=== PATIENT | female | born 1960 | race Caucasian/White ===

== ENCOUNTER 2019-06-11 17:38 | Inpatient (IN) ==
[2019-06-11] MEDS ORDERED: ZOSYN 3.375 GM in NS 50 ML IV ONE (18:06)
[2019-06-11] MEDS ORDERED: ZOFRAN IV ONE (18:11)
[2019-06-11] MEDS ORDERED: DILAUDID IV ONE (18:11)
--- NOTE | 2019-06-11 18:17 | PROVIDER DOCUMENTATION ---
This chart was entered by Nito Grider Scribe, acting as scribe for Oleg Neal MD. HPI-Abdominal Pain/GI Problem - General Chief Complaint: Abdominal Pain Stated Complaint: DR INMAN REF---APPENDIX? Time Seen by Provider: 06/11/19 17:43 Source: patient Allergies/Adverse Reactions: Patient Allergies Allergy/AdvReac Type Severity Reaction Status Date / Time No Known Allergies Allergy Verified 12/05/16 23:25 Home Medications: Home Medication List Medication Instructions Recorded Confirmed Last Taken Type Lisinopril 10 mg PO QHS 06/11/19 06/11/19 Unknown History Sertraline HCl 100 mg PO QHS 06/11/19 06/11/19 Unknown History - History of Present Illness-ABD Nature of Presenting Problems: Pt is a 58 yof who presents to the ED with a CC of abdominal pain. Pt reports her pain started two days ago. Pt reports her pain to the RLQ and to her generalized abdomen. Pt states she saw her PCP this morning and states an outpatient CT was performed. See CT results for report. Pt also complains of feeling diaphoretic and constipated and states her last bowel movement was three days ago. Pt states she saw Dr. Inman this morning. Abdominal Pain Onset Location: reports: RLQ, generalized abdomen Pain Radiation: reports: LLQ Quality of Pain: reports: aching, burning Severity in ED: reports: moderate Onset/Duration: reports: 2 days ago Timing: reports: still present Associated Symptoms: reports: diaphoresis Last BM: 3 days ago Bruising or Bleeding Gums?: No Similar Symptoms Previously?: Yes Recently seen or treated by another doctor?: Yes Review of Systems - Adult - REVIEW OF SYSTEMS - ADULT Constitutional: reports: see HPI Eyes: reports: no symptoms reported Ears, Nose, Mouth & Throat: reports: no symptoms reported Cardiovascular: reports: no symptoms reported Respiratory: reports: no symptoms reported Gastrointestinal: reports: see HPI, abdominal pain Genitourinary: reports: no symptoms reported Musculoskeletal: reports: no symptoms reported Integumentary: reports: no symptoms reported Neurological: reports: no symptoms reported Psychiatric: reports: no symptoms reported Endocrine: reports: no symptoms reported Hematologic/Lymphatic: reports: no symptoms reported Allergic/Immunologic: reports: no symptoms reported All Other Systems: Reviewed and Negative Past History - Adult - PAST MEDICAL HISTORY-ADULT Review of Records: reports: Old Records Reviewed, Nursing Assessment Review, Medications Reviewed, Social history reviewed & non-contributory. Major Childhood Illnesses: reports: denies history Cardiovascular: reports: denies history Respiratory: reports: denies history Gastrointestinal: reports: denies history Obstetrical/Gynecological: reports: denies history Genitourinary: reports: denies history Musculoskeletal: reports: denies history Neurological: reports: denies history Endocrine/Immune: reports: denies history Other Conditions: reports: denies history - PRIOR SURGERIES/PROCEDURES Surgical/Procedure History: reports: orthopedic (extremity) - IMMUNIZATION STATUS Childhood Immunizations: See Nurse Assessment Flu Vaccine: See Nurse Assessment - FAMILY HISTORY Family History: reviewed, not pertinent - SOCIAL HISTORY Smoking: cigarettes, less than 1 pack/day Substance Use: none/never, denies Alcohol Use Frequency: never Physical Exam-General - PHYSICAL EXAM-ADULT Initial Vital Signs Reviewed: Yes - CONSTITUTIONAL General Appearance: alert, moderate distress - EYES Eyes: PERRL/EOMI - HEAD, EARS, NOSE, MOUTH & THROAT HENMT: moist mucous membranes - NECK Neck: non-tender, full range of motion - RESPIRATORY Respiratory: chest non-tender, lungs clear, normal breath sounds, no pleuratic chest pain, no respiratory distress, no accessory muscle use - CARDIOVASCULAR Cardiovascular: normal peripheral pulses, regular rate, rhythm, no edema, no gallop, no JVD, no murmur - GASTROINTESTINAL (ABDOMEN) Abdominal Exam: rebound, tenderness - MUSCULOSKELETAL Extremity: normal range of motion, non-tender - SKIN Integumentary: normal color, diaphoresis - NEUROLOGIC Neurologic: grossly normal, no motor/sensory deficits - PSYCHIATRIC Psych/Mental Status: normal mood/affect, normal thought content, normal thought process, oriented x 3 Progress - PLAN OF CARE/RESULTS Progress/Plan/Lab Results: Vital Signs - 8 hr 06/11/19 17:46 Temperature 99.1 F Pulse Rate 89 Respiratory Rate 18 Blood Pressure 132/86 O2 Sat by Pulse Oximetry 96 Orders Category Date Time Status CBC WITH ELECTRONIC DIFF [HEME] Stat Lab 06/11/19 17:43 Uncollected COMPREHENSIVE METABOLIC PANEL [CHEM] Stat Lab 06/11/19 17:43 Uncollected PROTIME WITH INR [COAG] Stat Lab 06/11/19 17:43 Uncollected PTT [COAG] Stat Lab 06/11/19 17:43 Uncollected UA [URINALYSIS W/POSS RFLX CULT] [URINALYSIS] Stat Lab 06/11/19 17:43 Uncollected - CT/MRI 1 CT Study: Abdomen Impression: See EMR Report (CT was verbally reported. Dr. Inman. Impression: Acute appendicitis, 13 mm in diameter, extends towards umbilicus, enlongated) - CONSULTS/PCP/HOSPITALIST Notification #1 *Consult/PCP/Hospitalist*: Dr Ibarra Time Discussed: 18:00 Consult Disposition: Will see in ED, Admit Departure - Departure Date of Disposition Decision: 06/11/19 Time of Disposition Decision: 18:13 DIAGNOSIS: Acute appendicitis Disposition: ADMITTED INPATIENT 09 Certified Medical Emergency: Emergent Condition: Serious Additional Instructions: ED Follow Up Instructions: You have been treated by a care provider in the Emergency Department. These instructions are being provided to you so you can have an understanding of how to care for yourself upon discharge. Upon discharge from the Emergency Department, you are responsible for making arrangements for follow-up care by a physician of your choice. Take all prescribed medications as directed. Return to the Emergency Department immediately for any new or worsening symptoms. You may call the Physician Referral phone number at [phone] to obtain a list of Physicians who are taking new patients. Referrals and Follow-Ups: Stephen Inman MD [Primary Care Provider] - - Critical Care Note This patient required my direct & personal management of CC.: No Attestation - Physician/ BENJI Attestation Patient care was provided by Advanced Practice Provider:: No The physician spent face to face time with patient:: Yes Advanced Practice Provider documentation review:: Supervising physician onsite and consulted in the evaluation and care of this patient. The physician did have a face to face encounter with the patient. This chart was documented by the indicated scribe, (Nito Grider, Agnes) and accurately reflects the services I performed and decisions made by me, Oleg Neal MD, as attested by the provider's signature.
[2019-06-11] MEDS ORDERED: NS 1,000 ML IV ONE (18:18)
[2019-06-11 18:34] LABS: BASO# 0.01 X1000 (0.0-0.2); BASO% 0.1 % (0.0-0.8); EOS# 0.26 X1000 (0.0-0.7); HEMATOCRIT 41.6 % (37.0-47.0); HEMOGLOBIN 13.8 g/dL (12.0-16.0); IMM GRAN# 0.02 X1000 (0.0-0.04); IMM GRAN% 0.2 % (0.0-0.5); LYMPH# 1.87 X1000 (1.2-3.4); LYMPH% 14.2 % (20.5-51.1); MCH 29.7 PG (27-31); MCHC 33.2 g/dL (33-37); MCV 89.5 FL (81-99); MONO# 0.79 X1000 (0.11-0.59); MPV 10.2 FL (7.4-10.4); NEUT# 10.26 X1000 (1.4-6.5); NEUT% 77.5 % (42.2-75.2); PLT 228 X1000 (130-400); RBC 4.65 XMIL (4.2-5.4); RDW 12.7 % (11.5-14.5); WBC 13.21 X1000 (4.8-10.8)
[2019-06-11 18:38] LABS: INR 1.09; PROTIME 14.3 Seconds (11.0-16.0)
[2019-06-11] MEDS ORDERED: ZEMURON ONE (18:48)
[2019-06-11] MEDS ORDERED: XYLOCAINE-MPF 2% ONE (18:48)
[2019-06-11] MEDS ORDERED: VERSED ONE (18:49)
[2019-06-11] MEDS ORDERED: DIPRIVAN 1% ONE (18:49)
[2019-06-11] MEDS ORDERED: FENTANYL ONE (18:49)
[2019-06-11 18:58] LABS: AGAP 15; ALB/GLOB RATIO 0.9; ALBUMIN 3.8 g/dL (3.5-5.0); ALKALINE PHOSPHATASE 93 U/L (32-104); BUN 9 mg/dL (8-22); CALCIUM 9.1 mg/dL (8.8-10.2); CHLORIDE 98 mmol/L (98-107); COSMO 269; CREATININE 0.6 mg/dL (0.5-0.9); ESTIMATED GFR > 60; GLUCOSE 98 mg/dL (70-104); GOT 17 U/L (10-30); GPT 14 U/L (10-36); POTASSIUM 3.5 mmol/L (3.5-5.1); SODIUM 135 mmol/L (136-145); TCO2 22 mmol/L (25-35); TOTAL PROTEIN 8.1 g/dL (6.3-8.3)
[2019-06-11] MEDS ORDERED: ROBINUL ONE (19:04)
[2019-06-11] MEDS ORDERED: NEOSTIGMINE ONE (19:04)
[2019-06-11 19:34] LABS: URINE SOURCE CLEAN CATCH
[2019-06-11] MEDS ORDERED: LR 1,000 ML ONE (19:42)
[2019-06-11] MEDS ORDERED: SENSORCAINE 0.25%/EPI 1:200,000 ONE (19:42)
[2019-06-11] MEDS ORDERED: ZOFRAN ONE (19:54)
[2019-06-11] MEDS ORDERED: DECADRON ONE (19:54)
[2019-06-11] MEDS ORDERED: TORADOL ONE (19:54)
[2019-06-11 20:21] LABS: BILIRUBIN URINE NEGATIVE (NEGATIVE); BLOOD URINE MODERATE (NEGATIVE); COLOR YELLOW; GLUCOSE URINE NEGATIVE (NEGATIVE); KETONE URINE 20 mg/dL (NEGATIVE); LEUKOCYTES URINE NEGATIVE (NEGATIVE); NITRITE URINE NEGATIVE (NEGATIVE); PH URINE 7.5; PROTEIN URINE 50 mg/dL (NEGATIVE); TURBIDITY URINE CLEAR (CLEAR); UROBILINOGEN URINE NORMAL (NORMAL)
[2019-06-11 20:22] LABS: UR EPITHELIAL CELLS <10 /HPF (<10); URINE BACTERIA NEGATIVE /HPF; URINE RBC 20-40 /HPF (<10); URINE WBC <10 /HPF (<10)
[2019-06-11] MEDS ORDERED: ZOFRAN IV PRN (20:37)
[2019-06-11] MEDS ORDERED: MORPHINE IV PRN (20:37)
[2019-06-11] MEDS ORDERED: LR 1,000 ML IV SCH (20:45)
--- NOTE | 2019-06-11 20:50 | HISTORY AND PHYSICAL ---
DATE: 06/11/2019 CHIEF COMPLAINT: Abdominal pain. REASON FOR CONSULTATION: Acute appendicitis. HISTORY OF PRESENT ILLNESS: This is a 58-year-old female who since Sunday has developed vague abdominal pain that became more severe, localized in the lower quadrants of her abdomen. She went to Dr. Inman. He got a CT scan that showed a dilated thickened appendix consistent with acute appendicitis. She was transferred to the ER and I was consulted. MEDICAL HISTORY: Hypertension, tobacco use. SURGICAL HISTORY: She has had a vaginal hysterectomy. SOCIAL HISTORY: Smokes a pack a day. No alcohol. No drugs. She is here with her . She does not work. FAMILY HISTORY: Reviewed, noncontributory. REVIEW OF SYSTEMS: Ten point review of systems negative otherwise mentioned HPI. PHYSICAL EXAMINATION: Vital Signs: She is afebrile. Pulse 82, blood pressure 129/78. Oxygen saturation 100%. General: She is alert, in no acute distress. HEENT: No scleral icterus. No cervical mass. Cardiovascular: Normal rate. Pulmonary: No increased work of breathing. Abdomen: Soft. She is tender in the lower quadrant but no grover peritonitis. Integument: Warm, dry, without jaundice. Psychiatric: Appropriate affect. Neurologic: No gross deficits. Peripheral vascular: She has trace lower extremity edema. Lymphatic: No cervical, axillary or inguinal adenopathy. LABORATORY DATA: I reviewed her labs. She has a leukocytosis of 13, hematocrit 41, platelets 228,000. INR is 1.09. Creatinine is 0.6. Urinalysis is pending. I reviewed her CT report. I do not have her images as this was obtained on our outpatient imaging center. ASSESSMENT AND PLAN: This is a 58-year-old female with acute appendicitis; exam, history, and imaging is consistent with this. We discussed risks of bleeding, infection, damage surrounding structures, conversion to open, the possibility of abscess, anticipated recovery both with perforated and nonperforated appendicitis. She understands and consents. We started her on Zosyn. We will go the operating room this evening for laparoscopic appendectomy. cc: Kami Ibarra MD
[2019-06-11] MEDS: DILAUDID ONE ×2 (20:55→21:07)
[2019-06-11] MEDS ORDERED: ZOLOFT PO SCH (21:00)
[2019-06-11] MEDS ORDERED: NORCO-7.5 ONE (21:00)
[2019-06-11] MEDS: NORCO-7.5 PO PRN ×2 (21:03→23:37)
--- NOTE | 2019-06-11 23:32 | OPERATIVE NOTE ---
DATE: 06/11/2019 PREOPERATIVE DIAGNOSIS: Acute appendicitis. POSTOPERATIVE DIAGNOSIS: Acute appendicitis. PROCEDURE PERFORMED: Laparoscopic appendectomy. SPECIMENS: Appendix. ESTIMATED BLOOD LOSS: 5 mL ANESTHESIA: General. INDICATIONS: This is a 58-year-old female with approximately 48 hours of abdominal pain. CT scan showed dilated appendix consistent with acute appendicitis. OPERATIVE FINDINGS: There was a dilated, thickened appendix in the usual right lower quadrant location. There was no evidence of perforation. The pelvis appeared normal. The uterus was absent. No peritoneal lesions. There was some erythema in the small bowel, but no necrosis. Gallbladder was normal. Liver was normal. OPERATIVE NOTE: Risks, benefits and alternatives were discussed with the patient and she consented to the procedure. She was seen preoperatively and the surgical site was confirmed. She was taken to the operating room and placed in supine position. General anesthesia was induced. Bhat was placed. The abdomen was prepped with chlorhexidine solution and draped in the usual fashion. She was on scheduled antibiotics. After a time-out, a supraumbilical incision was made and carried down to the fascia. The fascia was incised and the abdomen was entered. After incising the peritoneum in an open controlled fashion, a 12 mm Boris trocar was placed. We then placed a 5 mm trocar in the suprapubic location and one in the left lower quadrant lateral to the inferior epigastrics. We did ensure to place this above the level of the bladder. The appendix was identified. We mobilized it out of the right lower quadrant, placing her in Trendelenburg, left side down. Using a LigaSure I divided the mesoappendix. I carried this up to the base of the appendix, and a 45 mm gold load stapler was used to divide the base of the appendix, with good closure. The base of the appendix was healthy. There was no necrosis. I confirmed hemostasis. We irrigated the abdomen. We placed the appendix in an EndoCatch bag and brought it out through the umbilical incision after removing the other trocars. The fascia was closed with interrupted 0 Vicryl sutures. The skin was closed with 4-0 Monocryl in subcuticular fashion. Dermabond was applied. Counts were correct. Transfered to recovery. I spoke with the family. cc: Kami Ibarra MD [facility]
[2019-06-12] MEDS: NORCO-7.5 PO PRN (05:13)
[2019-06-12 07:36] VITALS: BP 111/52
--- NOTE | 2019-06-12 15:05 | DISCHARGE SUMMARY ---
ADMISSION DATE: 06/11/2019 DISCHARGE DATE: 06/12/2019 ADMITTING DIAGNOSIS: Acute appendicitis. POSTOP DIAGNOSIS: Acute appendicitis. PROCEDURE PERFORMED: Laparoscopic appendectomy. HPI: A 58-year-old female who presented to the emergency department with abdominal pain. CT scan obtained as an outpatient by Dr. Inman was consistent with acute appendicitis. HOSPITAL COURSE: Patient was seen in the emergency department on the day of her surgery for above procedure. For details, please see dictated operative note. Postoperatively, she was admitted and continued on IV hydration. She was able to void. She was able to tolerate p.o. Her pain is much improved. Her abdomen is soft. Incisions are intact and heart rate was normal. She was felt safe for discharge. Follow up appointment is with me in a week. DISPOSITION: Home to self-care. DISCHARGE CONDITION: Good. DISCHARGE MEDICATIONS: She can continue her home medications. She was given a prescription for Eucha and Colace. DISCHARGE DIET: Will advance as tolerated. cc: Kami Ibarra MD
== END 2019-06-12 08:54 | disposition home or self-care (01) | DRG 343 ==
LOC: ED 17:38 → 4N 21:46
PROVIDERS: ADMIT Surgery; ATTEND Surgery